=== PATIENT | female | born 1960 | race Caucasian/White ===

== ENCOUNTER 2024-08-15 11:04 | Emergency (ER) | payer OTHER ==
[2024-08-15 11:11] VITALS: TEMP 99; BMI 26.6
[2024-08-15] MEDS ORDERED: MAG HYDROX/AL HYDROX/SIMETH 30 ML UNIT-DOSE CUP ONE (11:35)
[2024-08-15] MEDS ORDERED: FAMOTIDINE 20 MG/50 ML IVPB 20 MG/50 ML MG IVPB ONE (11:35)
[2024-08-15] MEDS ORDERED: ONDANSETRON 4 MG/2 ML VIAL ONE (11:35)
[2024-08-15] MEDS: LACTATED RINGERS SOLUTION 1000 ML INFUS.BAG IV ONE (11:50)
[2024-08-15 11:55] LABS: ABSOLUTE IMMATURE GRANULOCYTES 0.02 x10^3/uL (0.0-0.031); BASOPHILS # 0.06 x10^3/uL (0.01-0.08); EOSINOPHIL % 0.3 % (0.7-5.8); EOSINOPHILS # 0.03 x10^3/uL (0.04-0.36); HEMATOCRIT 40.6 % (34.1-44.9); HEMOGLOBIN 13.8 g/dL (11.2-15.7); MEAN CELL VOLUME 85.8 fl (79.4-94.8); MEAN PLT VOLUME 9.7 fl (9.4-12.3); MONOCYTE # 0.62 x10^3/uL (0.24-0.86); MONOCYTE % 6.5 % (4.7-12.5); PLATELET COUNT 289 x10^3/uL (182-369)
[2024-08-15] MEDS: ONDANSETRON 4 MG/2 ML VIAL IVPUSH ONE (11:55)
[2024-08-15] MEDS: FAMOTIDINE 20 MG/50 ML IVPB 20 MG/50 ML MG IVPB ONE (12:00)
[2024-08-15] MEDS: MAG HYDROX/AL HYDROX/SIMETH -MYLANTA- ORAL SUSPENSION PO ONE (12:00)
[2024-08-15 12:28] LABS: ALBUMIN 4.6 g/dl (3.4-5.0); BILIRUBIN,TOTAL 0.6 mg/dl (0.2-1); CALCIUM 9.9 mg/dl (8.5-10.1); TOT PROT 6.9 g/dl (6.4-8.2)
[2024-08-15 13:32] VITALS: BP 142/75; PULSE 76; RESP 16
[2024-08-15] MEDS ORDERED: POTASSIUM CHLORIDE ORAL LIQUID 20 MEQ/15 ML ONE (13:35)
[2024-08-15] MEDS: POTASSIUM CHLORIDE ORAL LIQUID 20 MEQ/15 ML PO ONE (13:38)
[2024-08-15 14:19] LABS: HIV INTERPRETATION NEGATIVE (NEGATIVE)
[2024-08-15 14:20] LABS: HCV DIAGNOSTIC IN-HOUSE W/RFLX NON-REACTIVE (NONREACTIVE)
== END 2024-08-15 14:00 | disposition home or self-care (01) ==
LOC: FER 11:04
PROC: 3E033GC Introduction of Other Therapeutic Substance into Peripheral Vein, Percutaneous Approach (ICD-10-PCS; principal; 2024-08-15)
PROC: 3E033GC Introduction of Other Therapeutic Substance into Peripheral Vein, Percutaneous Approach (ICD-10-PCS; 2024-08-15)
DX: R19.7 Diarrhea, unspecified (principal); E87.6 Hypokalemia; R10.84 Generalized abdominal pain
CPT/HCPCS: 36415; 80053; 83735; 84484; 85025; 86803; 87389; 93005; 96365; 96375; 99284-25